=== PATIENT | male | born 1990 | race Two or more races ===

== ENCOUNTER 2019-09-25 06:00 | Emergency (ER) | payer SELFPAY ==
[~2019-09-25] VITALS: Ht 165.1 cm; Wt 77.0 kg
[2019-09-25 07:03] VITALS: BP 130/82
== END 2019-09-25 07:04 | disposition home or self-care (01) ==
LOC: ER 06:14
DX: F10.129 Alcohol abuse with intoxication, unspecified (principal); Y90.9 Presence of alcohol in blood, level not specified
CPT/HCPCS: 99283